=== PATIENT | male | born 1980 | race Two or more races ===

== ENCOUNTER → 2020-03-18 09:39 | Outpatient (CLI) | payer OTHER ==
[~2020-03-18 09:39] MED LIST: FLONASE16 GM NS; GILTUSS TR TAB1 EACH PO; ZYRTEC10 MG PO
== END | disposition home or self-care (01) ==
LOC: LAB 09:39
PROVIDERS: ATTEND General Practice
DX: J11.1 Influenza due to unidentified influenza virus with other respiratory manifestations (principal); Z20.828 Contact with and (suspected) exposure to other viral communicable diseases; R51 Headache; R00.0 Tachycardia, unspecified; R53.81 Other malaise; R50.9 Fever, unspecified; R00.8 Other abnormalities of heart beat